=== PATIENT | male | born 1975 | race Caucasian/White ===

== ENCOUNTER 2020-02-09 18:09 | Emergency (ER) | payer SELFPAY ==
[2020-02-09 18:15] VITALS: BP 146/92
--- NOTE | 2020-02-09 19:05 | ER Document Report ---
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 Patient states that he was using a drill with an auger and it caught in wood and twisted the hand and wrist. Denies wrist pain. Denies hand pain. States he has had numbness and tingling in the fourth and fifth fingers as well as the lateral right hand since the injury. ROS: See HPI - all other systems were reviewed and are otherwise negative Constitutional: no fever Integumentary: no rash Allergy: no hives Musculoskeletal: no extremity pain or swelling Neurological: + numbness/tingling, + weakness MEDICATIONS: I agree with the patient medications as charted by the RN. ALLERGIES: I agree with the allergies as charted by the RN. PAST MEDICAL HISTORY/PAST SURGICAL HISTORY: Reviewed and agree as charted by RN. SOCIAL HISTORY: Reviewed and agree as charted by RN. FAMILY HISTORY: No significant familial comorbid conditions directly related to patient complaint EXAM: Reviewed vital signs as charted by RN. CONSTITUTIONAL: Alert and oriented and responds appropriately to questions. Well-appearing; well-nourished HEAD: Normocephalic; atraumatic EYES: PERRL; Conjunctivae clear, sclerae non-icteric ENT: normal nose; no rhinorrhea; moist mucous membranes NECK: Supple without meningismus CARD: symmetric distal pulses RESP: Normal chest excursion without splinting or tachypnea ABD/GI: non-distended BACK: The back appears normal EXT: Normal ROM in all joints; non-tender to palpation; no cyanosis, no effusions, no edema. Patient is able to fully open and close the right hand as well as all fingers of the right hand. Able to fully abduct the thumb. Capillary refill less than 3 seconds in all fingertips. Patient reports subjective decreased sensation over the fourth and fifth fingers of the right hand relative to the left. He also reports some numbing sensation in the lateral aspect of the right hand overlying the fourth and fifth metacarpals. There is no snuffbox tenderness. Radial and ulnar pulses are present in the right wrist. There is no forearm discomfort on palpation. SKIN: Normal color for age and race; warm; dry; good turgor; no acute lesions noted NEURO: Moves all extremities equally; Motor function intact. No definitive weakness on flexion extension of the right hand versus the left hand at the wrist. Strength is equal 5/5 bilateral pole maker PSYCH: The patient's mood and manner are appropriate. Grooming and personal hygiene are appropriate. MDM: 44-year-old female with injury to the right hand 5 days ago with a twisting motion. Not complaining of pain but complaining of numbness tingling in the fourth and fifth fingers. Will obtain x-ray to evaluate bone structure if normal will refer to orthopedics for management. Will place patient on a course of anti-inflammatories. This may be a simple nerve injury, there is no visible bruising or soft tissue swelling to the hand - CONSTITUTIONAL Constitutional: DENIES: Fever, Chills Past Medical History - Social History Smoking Status: Current Every Day Smoker Chew tobacco use (# tins/day): No Frequency of alcohol use: Occasional Drug Abuse: None Family History: Reviewed & Not Pertinent Patient has suicidal ideation: No Patient has homicidal ideation: No - Immunizations Hx Diphtheria, Pertussis, Tetanus Vaccination: No Course - Re-evaluation Re-evalutation: 02/09/20 19:21 X-ray on my review does not show evidence of a an acute fracture, will discharge home to follow-up with orthopedics - Vital Signs Vital signs: Temp Pulse Resp BP Pulse Ox 98.4 F 80 17 146/92 H 99 02/09/20 18:14 02/09/20 18:14 02/09/20 18:14 02/09/20 18:14 02/09/20 18:14 Discharge - Discharge Clinical Impression: Numbness and tingling in right hand Condition: Stable Disposition: HOME, SELF-CARE Additional Instructions: Take the anti-inflammatories as prescribed. Follow-up closely with orthopedics for further evaluation of the numbness and tingling in the hand Prescriptions: Diclofenac Sodium [Voltaren 50 Mg Tablet.] 50 mg PO BID #20 tablet. Referrals: SANDRO GAMBLE MD [Primary Care Provider] - Follow up as needed LAN SHERMAN DO [ACTIVE STAFF] - Follow up as needed
--- NOTE | 2020-02-09 19:24 | RADIOLOGY REPORT (SQ) ---
EXAM DESCRIPTION: HAND RIGHT 3 VIEWS IMAGES COMPLETED DATE/TIME: 02/09/2020 7:05 pm REASON FOR STUDY: injury COMPARISON: None. NUMBER OF VIEWS: Three views right hand. LIMITATIONS: None. FINDINGS: Mild deformity of the distal ulna with a well corticated fracture fragment projecting dors ally. There is radiocarpal and ulnocarpal degenerative narrowing along with triscaphe and thumb base DJD. No acute fracture is suggested. OTHER: No other significant finding. IMPRESSION: No acute findings. Chronic changes as above. TECHNICAL DOCUMENTATION: JOB ID: [id number] Reading location - IP/workstation name: [email or web address]
== END 2020-02-09 19:31 | disposition home or self-care (01) ==
LOC: ER 18:09
DX: R20.0 Anesthesia of skin (principal); R20.2 Paresthesia of skin; W23.0XXA Caught, crushed, jammed, or pinched between moving objects, initial encounter; Y99.0 Civilian activity done for income or pay; F17.200 Nicotine dependence, unspecified, uncomplicated
CPT/HCPCS: 99283